=== PATIENT | female | born 1975 | race Two or more races ===

== ENCOUNTER 2017-02-15 20:19 | Emergency (ER) | payer MEDICARE, MEDICAID ==
[~2017-02-15] VITALS: Ht 152.4 cm; Wt 66.0 kg
[~2017-02-15 20:19] MED LIST: AZIT500T2 PO; CALC0.25 PO; CHOL100014 PO; DOCU-30 PO; ERTA1VIA IV; FAMO-79 PO; LEVO50TA5 PO; MULT-26 PO; MYCOPHENOLATE PEG; PRED5TAB PO; SEVE800T8 PO; TACR5CAP4 PO; ZOLP-413 PO
[2017-02-15] MEDS ORDERED: OXYcodone/APAP 5/325MG TABLET PO ONE (21:30)
[2017-02-15] MEDS ORDERED: OXYcodone/APAP 5/325MG TABLET ONE (21:30)
[2017-02-15 21:38] LABS: HEMOGLOBIN 12.2 g/dL (11.7-16.4)
[2017-02-15 21:52] LABS: ASPARTATE AMINO TRANSFERASE 37 U/L (15-37); BLOOD UREA NITROGEN 25 mg/dL (7-18)
[2017-02-15 21:54] LABS: DIFF TOTAL CELLS COUNTED 100 CELL DIFF
[2017-02-15 21:56] LABS: VERIFY COUNTS? YES
[2017-02-15 22:14] LABS: HCG UR OBC PASS
[2017-02-15] MEDS ORDERED: CEFTRIAXONE 1,000 MG IM ONE (23:00)
[2017-02-15] MEDS ORDERED: CEFTRIAXONE 1,000 MG ONE (23:02)
[2017-02-15] MEDS ORDERED: LIDOCAINE 1%, 20ML ONE (23:02)
[2017-02-15 23:36] VITALS: BP 110/72
== END 2017-02-15 23:38 | disposition home or self-care (01) ==
LOC: ED 23:03
DX: N30.91 Cystitis, unspecified with hematuria (principal); N18.6 End stage renal disease; Z99.2 Dependence on renal dialysis; Z88.0 Allergy status to penicillin; Z90.49 Acquired absence of other specified parts of digestive tract; Z86.711 Personal history of pulmonary embolism; Z94.0 Kidney transplant status
CPT/HCPCS: 36415; 80053; 81001; 81025; 83690; 85025; 87086; 96372; 99284; J0696

== ENCOUNTER 2017-03-06 21:12 | Emergency (ER) | payer MEDICARE, MEDICAID ==
[~2017-03-06] VITALS: Ht 152.4 cm; Wt 65.5 kg
[2017-03-06 22:36] LABS: PATH.CAST-FLAG NOT PRESENT; SPERM-FLAG NOT PRESENT; SRC-FLAG NOT PRESENT; XTAL-FLAG NOT PRESENT; YLC-FLAG NOT PRESENT
[2017-03-06] MEDS ORDERED: ONDANSETRON 2MG/ML, 2ML ONE (22:56)
[2017-03-06] MEDS ORDERED: MORPHINE SULFATE 4 MG/ML, 1ML ONE (22:56)
[2017-03-06] MEDS ORDERED: SODIUM CHLORIDE FLUSH 10ML SYR IVF ONE (23:00)
[2017-03-06] MEDS ORDERED: SODIUM CHLORIDE 0.9% 1,000ML IVBOLUS ONE (23:00)
[2017-03-06] MEDS ORDERED: ONDANSETRON 2MG/ML, 2ML IVPush ONE (23:00)
[2017-03-06] MEDS: MORPHINE SULFATE 4 MG/ML, 1ML IVPush PRN (23:04)
[2017-03-06 23:05] LABS: HEMOGLOBIN 12.3 g/dL (11.7-16.4)
[2017-03-06 23:15] LABS: BLOOD UREA NITROGEN 23 mg/dL (7-18)
[2017-03-06 23:20] LABS: ASPARTATE AMINO TRANSFERASE 21 U/L (15-37)
[2017-03-06 23:30] LABS: DIFF TOTAL CELLS COUNTED 100 CELL DIFF
[2017-03-06] MEDS ORDERED: CEFTRIAXONE PMX 1GM/50ML 50 ML IV ONE (23:30)
[2017-03-06 23:35] LABS: VERIFY COUNTS? YES
[2017-03-06] MEDS ORDERED: CEFTRIAXONE PMX 1GM/50ML 50 ML ONE (23:56)
[2017-03-07] MEDS: MORPHINE SULFATE 4 MG/ML, 1ML IVPush PRN (00:01)
[2017-03-07] MEDS ORDERED: MORPHINE SULFATE 4 MG/ML, 1ML ONE (00:02)
[2017-03-07 00:40] VITALS: BP 112/68
== END 2017-03-07 00:44 | disposition home or self-care (01) ==
LOC: ED 23:59
DX: N30.00 Acute cystitis without hematuria (principal); N83.202 Unspecified ovarian cyst, left side; Z90.49 Acquired absence of other specified parts of digestive tract; Z88.0 Allergy status to penicillin
CPT/HCPCS: 36415; 74176; 80053; 81001; 84703; 85025; 87086; 96361; 96365; 96375; 96376; 99285; J0696; J2405; J7030

== ENCOUNTER 2017-10-25 20:11 | Emergency (ER) | payer MEDICARE, MEDICAID ==
[~2017-10-25] VITALS: Ht 149.9 cm; Wt 69.4 kg
[~2017-10-25 20:11] MED LIST changes: +DOCU-131 PO; -DOCU-30 PO
[2017-10-25] MEDS ORDERED: SODIUM CHLORIDE 0.9% 1,000ML IVBOLUS ONE (21:00)
[2017-10-25 21:02] LABS: HEMATOCRIT 37.8 % (34.6-47.8); HEMOGLOBIN 12.4 g/dL (11.7-16.4); WHITE BLOOD COUNT 5.1 x10^3/uL (3.4-10)
[2017-10-25 21:11] LABS: ASPARTATE AMINO TRANSFERASE 12 U/L (15-37); BLOOD UREA NITROGEN 27 mg/dL (7-18)
[2017-10-25] MEDS ORDERED: HYDROmorphone 1 MG/ML, 1ML ONE (21:12)
[2017-10-25] MEDS ORDERED: ONDANSETRON 2MG/ML, 2ML ONE (21:12)
[2017-10-25 21:13] LABS: PATH.CAST-FLAG NOT PRESENT; SPERM-FLAG NOT PRESENT; SRC-FLAG NOT PRESENT; XTAL-FLAG NOT PRESENT; YLC-FLAG NOT PRESENT
[2017-10-25 21:23] LABS: DIFF TOTAL CELLS COUNTED 100 CELL DIFF
[2017-10-25 21:29] LABS: VERIFY COUNTS? YES
[2017-10-25] MEDS ORDERED: HYDROmorphone 1 MG/ML, 1ML IVPush PRN (21:30)
[2017-10-25] MEDS ORDERED: ONDANSETRON 2MG/ML, 2ML IVPush ONE (21:30)
[2017-10-25] MEDS ORDERED: MORPHINE SULFATE 4 MG/ML, 1ML IVPush PRN (21:30)
[2017-10-25] MEDS ORDERED: CEFTRIAXONE PMX 1GM/50ML 50 ML ONE (21:54)
[2017-10-25] MEDS ORDERED: CEFTRIAXONE PMX 1GM/50ML 50 ML IV ONE (22:00)
[2017-10-25 23:09] VITALS: BP 111/82
== END 2017-10-25 23:11 | disposition home or self-care (01) ==
LOC: ED 21:51
DX: N30.00 Acute cystitis without hematuria (principal); Z86.711 Personal history of pulmonary embolism; Z94.0 Kidney transplant status; Z90.49 Acquired absence of other specified parts of digestive tract; Z88.0 Allergy status to penicillin; Z88.8 Allergy status to other drugs, medicaments and biological substances
CPT/HCPCS: 36415; 80053; 81001; 83605; 83690; 84145; 85025; 87077; 87086; 87186; 96361; 96365; 96375; 99284; J0696; J1170; J2405; J7030

== ENCOUNTER 2018-01-09 06:41 | Inpatient (IN) | payer MEDICARE, MEDICAID ==
[~2018-01-09] VITALS: Ht 152.4 cm; Wt 70.1 kg
[2018-01-09] MEDS ORDERED: ONDANSETRON 2MG/ML, 2ML ONE (08:00)
[2018-01-09] MEDS ORDERED: SODIUM CHLORIDE FLUSH 10ML SYR IVF ONE (08:00)
[2018-01-09] MEDS ORDERED: MORPHINE SULFATE 4 MG/ML, 1ML ONE ×2 (08:00→09:24)
[2018-01-09] MEDS ORDERED: SODIUM CHLORIDE 0.9% 1,000ML IVBOLUS ONE (08:00)
[2018-01-09] MEDS ORDERED: ONDANSETRON 2MG/ML, 2ML IVPush ONE (08:00)
[2018-01-09] MEDS: MORPHINE SULFATE 4 MG/ML, 1ML IVPush PRN ×2 (08:14→09:25)
[2018-01-09 08:23] LABS: HCG UR SG 1.023 (1.003-1.030)
[2018-01-09 08:24] LABS: MICROSCOPIC INDICATED
[2018-01-09 08:28] LABS: BASOPHILS # (AUTO) 0.04 x10^3/uL (0-0.1); BASOPHILS % (AUTO) 1 % (0-1); EOSINOPHILS # (AUTO) 0.16 x10^3/uL (0-0.4); EOSINOPHILS % (AUTO) 2 % (1-7); LYMPHOCYTES # (AUTO) 1.06 x10^3/uL (1-3.4); LYMPHOCYTES % (AUTO) 14 % (22-44); MD NO; MEAN CORPUSCULAR HEMOGLOBIN 28.7 pg (27.0-34.8); MEAN CORPUSCULAR HGB CONC 31.9 g/dL (32.4-35.8); MEAN CORPUSCULAR VOLUME 89.8 fL (80-100); MONOCYTES # (AUTO) 0.56 x10^3/uL (0.2-0.8); MONOCYTES % (AUTO) 7 % (2-9); NEUTROPHILS # (AUTO) 5.81 x10^3/uL (1.8-6.8); NEUTROPHILS % (AUTO) 76 % (42-75); PLATELET COUNT 223 x10^3/uL (130-400); RED BLOOD COUNT 4.67 x10^6/uL (3.82-5.3); RED CELL DISTRIBUTION WIDTH 13.6 % (9.6-15.2)
[2018-01-09 08:40] LABS: ALANINE AMINOTRANSFERASE 15 U/L (12-78); ALBUMIN 3.6 g/dL (3.4-5.0); ANION GAP 8 mmol/L (5-15); CALCIUM 8.9 mg/dL (8.5-10.1); CHLORIDE 109 mmol/L (98-107); CREATININE 1.02 mg/dL (0.55-1.02)
[2018-01-09 08:41] LABS: CULTURE INDICATED? YES
[2018-01-09 08:43] LABS: ALKALINE PHOSPHATASE 70 U/L (45-117); BILIRUBIN,TOTAL 0.9 mg/dL (0.2-1.0); TOTAL PROTEIN 7.4 g/dL (6.4-8.2)
[2018-01-09] MEDS ORDERED: CEFTRIAXONE PMX 1GM/50ML 50 ML IV ONE ×2 (09:00→14:00)
[2018-01-09] MEDS ORDERED: CEFTRIAXONE PMX 1GM/50ML 50 ML ONE (09:23)
[2018-01-09] MEDS ORDERED: TACR1CAP4 PO (09:28)
[2018-01-09] MEDS ORDERED: MYCO250C4 PO (09:28)
[2018-01-09] MEDS ORDERED: hydrALAzine 20 MG/ML, 1ML IVPush PRN (11:00)
[2018-01-09] MEDS ORDERED: ONDANSETRON 2MG/ML, 2ML IVPush PRN (11:00)
[2018-01-09] MEDS ORDERED: TEMAZEPAM 15 MG CAPSULE PO PRN (11:00)
[2018-01-09 11:21] LABS: FREE T4 (FREE THYROXINE) 1.21 ng/dL (0.76-1.46); THYROID STIMULATING HORMONE 1.61 mIU/L (0.358-3.740)
[2018-01-09 12:28] VITALS: BP 101/68
[2018-01-09] MEDS ORDERED: CEFTRIAXONE 2 GM in SODIUM CHLORIDE 0.9% 50 ML IV SCH (12:30)
[2018-01-09] MEDS: LACTOBACILLUS 1GM/ PACKET PO SCH ×3 (13:17→20:07)
[2018-01-09] MEDS: TACROLIMUS 1 MG CAPSULE PO SCH ×2 (13:18→23:43)
[2018-01-09] MEDS: HEPARIN 5,000 UNITS/ML, 1ML SQ SCH ×2 (13:19→20:07)
[2018-01-09] MEDS: OMEPRAZOLE 20 MG CAPSULE.DR PO SCH (13:19)
[2018-01-09] MEDS: HYDROcodone/APAP 5/325 TABLET PO PRN (17:18)
[2018-01-09 20:24] VITALS: BP 101/66
[2018-01-10 00:13] VITALS: BP 101/63
[2018-01-10] MEDS: HEPARIN 5,000 UNITS/ML, 1ML SQ SCH ×3 (03:12→21:59)
[2018-01-10 05:23] LABS: BASOPHILS # (AUTO) 0.04 x10^3/uL (0-0.1); BASOPHILS % (AUTO) 1 % (0-1); EOSINOPHILS # (AUTO) 0.12 x10^3/uL (0-0.4); EOSINOPHILS % (AUTO) 2 % (1-7); LYMPHOCYTES # (AUTO) 1.03 x10^3/uL (1-3.4); LYMPHOCYTES % (AUTO) 12 % (22-44); MD NO; MEAN CORPUSCULAR HEMOGLOBIN 28.7 pg (27.0-34.8); MEAN CORPUSCULAR VOLUME 89.5 fL (80-100); MEAN PLATELET VOLUME 9.7 fL (7.4-10.4); MONOCYTES # (AUTO) 0.43 x10^3/uL (0.2-0.8); MONOCYTES % (AUTO) 5 % (2-9); NEUTROPHILS # (AUTO) 6.72 x10^3/uL (1.8-6.8); NEUTROPHILS % (AUTO) 81 % (42-75); PLATELET COUNT 196 x10^3/uL (130-400); RED BLOOD COUNT 4.21 x10^6/uL (3.82-5.3)
[2018-01-10 05:26] LABS: CHLORIDE 108 mmol/L (98-107)
[2018-01-10] MEDS: LEVOTHYROXINE 50 MCG TABLET PO SCH (05:29)
[2018-01-10 05:35] LABS: ALANINE AMINOTRANSFERASE 67 U/L (12-78); ALBUMIN 3.1 g/dL (3.4-5.0); ALKALINE PHOSPHATASE 81 U/L (45-117); ANION GAP 7 mmol/L (5-15); BILIRUBIN,TOTAL 0.5 mg/dL (0.2-1.0); CALCIUM 8.6 mg/dL (8.5-10.1); CREATININE 0.94 mg/dL (0.55-1.02); TOTAL PROTEIN 6.4 g/dL (6.4-8.2)
[2018-01-10 06:55] VITALS: BP 96/63
[2018-01-10] MEDS: LACTOBACILLUS 1GM/ PACKET PO SCH ×3 (08:34→21:59)
[2018-01-10] MEDS: OMEPRAZOLE 20 MG CAPSULE.DR PO SCH (08:34)
[2018-01-10] MEDS: HYDROcodone/APAP 5/325 TABLET PO PRN (08:44)
[2018-01-10] MEDS: CEFTRIAXONE PMX 2GM/50ML 50 ML IV SCH (12:50)
[2018-01-10] MEDS: TACROLIMUS 1 MG CAPSULE PO SCH ×2 (12:50→21:59)
[2018-01-10 14:25] VITALS: BP 99/62
[2018-01-10 14:26] VITALS: BP_SYST 105; BP_SYST 108; BP_DIAS 66; BP_DIAS 71
[2018-01-10 20:49] VITALS: BP 117/76
[2018-01-11 03:56] VITALS: BP 102/65
[2018-01-11] MEDS: LEVOTHYROXINE 50 MCG TABLET PO SCH (05:18)
[2018-01-11] MEDS: HEPARIN 5,000 UNITS/ML, 1ML SQ SCH ×3 (05:18→20:24)
[2018-01-11 05:21] LABS: BASOPHILS # (AUTO) 0.03 x10^3/uL (0-0.1); BASOPHILS % (AUTO) 0 % (0-1); EOSINOPHILS # (AUTO) 0.16 x10^3/uL (0-0.4); EOSINOPHILS % (AUTO) 2 % (1-7); LYMPHOCYTES # (AUTO) 1.48 x10^3/uL (1-3.4); LYMPHOCYTES % (AUTO) 18 % (22-44); MD NO; MEAN CORPUSCULAR HEMOGLOBIN 28.7 pg (27.0-34.8); MEAN CORPUSCULAR HGB CONC 32.1 g/dL (32.4-35.8); MEAN CORPUSCULAR VOLUME 89.5 fL (80-100); MEAN PLATELET VOLUME 9.4 fL (7.4-10.4); MONOCYTES # (AUTO) 0.66 x10^3/uL (0.2-0.8); MONOCYTES % (AUTO) 8 % (2-9); NEUTROPHILS % (AUTO) 72 % (42-75); PLATELET COUNT 211 x10^3/uL (130-400); RED BLOOD COUNT 4.31 x10^6/uL (3.82-5.3); RED CELL DISTRIBUTION WIDTH 14.2 % (9.6-15.2)
[2018-01-11 05:26] LABS: CHLORIDE 107 mmol/L (98-107)
[2018-01-11 05:30] LABS: ANION GAP 8 mmol/L (5-15); CALCIUM 8.5 mg/dL (8.5-10.1); CREATININE 1.06 mg/dL (0.55-1.02)
[2018-01-11 06:50] VITALS: BP 99/62
[2018-01-11] MEDS: OMEPRAZOLE 20 MG CAPSULE.DR PO SCH (08:48)
[2018-01-11] MEDS: LACTOBACILLUS 1GM/ PACKET PO SCH ×3 (08:48→20:25)
[2018-01-11] MEDS: TACROLIMUS 1 MG CAPSULE PO SCH ×2 (08:49→20:25)
[2018-01-11] MEDS: HYDROcodone/APAP 5/325 TABLET PO PRN ×2 (08:54→20:24)
[2018-01-11] MEDS: CEFTRIAXONE PMX 2GM/50ML 50 ML IV SCH (12:47)
[2018-01-11 13:09] VITALS: BP 111/70
[2018-01-11 19:57] VITALS: BP 106/70
[2018-01-12 02:37] VITALS: BP 96/58
[2018-01-12 05:30] LABS: BASOPHILS # (AUTO) 0.03 x10^3/uL (0-0.1); BASOPHILS % (AUTO) 0 % (0-1); EOSINOPHILS # (AUTO) 0.19 x10^3/uL (0-0.4); EOSINOPHILS % (AUTO) 2 % (1-7); LYMPHOCYTES # (AUTO) 1.54 x10^3/uL (1-3.4); LYMPHOCYTES % (AUTO) 18 % (22-44); MD NO; MEAN CORPUSCULAR HEMOGLOBIN 28.4 pg (27.0-34.8); MEAN CORPUSCULAR HGB CONC 31.8 g/dL (32.4-35.8); MEAN CORPUSCULAR VOLUME 89.4 fL (80-100); MEAN PLATELET VOLUME 9.9 fL (7.4-10.4); MONOCYTES # (AUTO) 0.69 x10^3/uL (0.2-0.8); MONOCYTES % (AUTO) 8 % (2-9); NEUTROPHILS # (AUTO) 6.04 x10^3/uL (1.8-6.8); NEUTROPHILS % (AUTO) 71 % (42-75); PLATELET COUNT 216 x10^3/uL (130-400); RED CELL DISTRIBUTION WIDTH 14.1 % (9.6-15.2)
[2018-01-12] MEDS: LEVOTHYROXINE 50 MCG TABLET PO SCH (05:41)
[2018-01-12] MEDS: HEPARIN 5,000 UNITS/ML, 1ML SQ SCH ×3 (05:42→20:29)
[2018-01-12 05:57] LABS: CHLORIDE 105 mmol/L (98-107)
[2018-01-12 06:22] LABS: ALANINE AMINOTRANSFERASE 51 U/L (12-78); ALBUMIN 3.3 g/dL (3.4-5.0); ALKALINE PHOSPHATASE 72 U/L (45-117); ANION GAP 11 mmol/L (5-15); BILIRUBIN,TOTAL 0.4 mg/dL (0.2-1.0); CALCIUM 8.7 mg/dL (8.5-10.1); CREATININE 1.14 mg/dL (0.55-1.02); TOTAL PROTEIN 6.6 g/dL (6.4-8.2)
[2018-01-12 07:06] VITALS: BP 109/71
[2018-01-12] MEDS: OMEPRAZOLE 20 MG CAPSULE.DR PO SCH (08:15)
[2018-01-12] MEDS: LACTOBACILLUS 1GM/ PACKET PO SCH ×3 (08:15→20:28)
[2018-01-12] MEDS: TACROLIMUS 1 MG CAPSULE PO SCH ×2 (10:02→20:29)
[2018-01-12] MEDS: CEFTRIAXONE PMX 2GM/50ML 50 ML IV SCH (12:30)
[2018-01-12 13:36] VITALS: BP 106/70
[2018-01-12 20:00] VITALS: BP 108/69
[2018-01-13 02:00] VITALS: BP 101/67
[2018-01-13] MEDS: HEPARIN 5,000 UNITS/ML, 1ML SQ SCH ×3 (05:00→20:38)
[2018-01-13 05:18] LABS: BASOPHILS # (AUTO) 0.04 x10^3/uL (0-0.1); BASOPHILS % (AUTO) 0 % (0-1); EOSINOPHILS % (AUTO) 2 % (1-7); LYMPHOCYTES # (AUTO) 1.51 x10^3/uL (1-3.4); LYMPHOCYTES % (AUTO) 17 % (22-44); MD NO; MEAN CORPUSCULAR HEMOGLOBIN 28.8 pg (27.0-34.8); MEAN CORPUSCULAR HGB CONC 31.8 g/dL (32.4-35.8); MEAN CORPUSCULAR VOLUME 90.6 fL (80-100); MEAN PLATELET VOLUME 9.3 fL (7.4-10.4); MONOCYTES # (AUTO) 0.58 x10^3/uL (0.2-0.8); MONOCYTES % (AUTO) 7 % (2-9); NEUTROPHILS # (AUTO) 6.54 x10^3/uL (1.8-6.8); NEUTROPHILS % (AUTO) 74 % (42-75); PLATELET COUNT 222 x10^3/uL (130-400); RED BLOOD COUNT 4.52 x10^6/uL (3.82-5.3); RED CELL DISTRIBUTION WIDTH 13.9 % (9.6-15.2)
[2018-01-13 05:35] LABS: CHLORIDE 105 mmol/L (98-107)
[2018-01-13 05:44] LABS: ANION GAP 9 mmol/L (5-15); CALCIUM 8.8 mg/dL (8.5-10.1); CREATININE 1.19 mg/dL (0.55-1.02)
[2018-01-13] MEDS: LEVOTHYROXINE 50 MCG TABLET PO SCH (06:12)
[2018-01-13 07:00] VITALS: BP 101/68
[2018-01-13] MEDS: OMEPRAZOLE 20 MG CAPSULE.DR PO SCH (07:54)
[2018-01-13] MEDS: TACROLIMUS 1 MG CAPSULE PO SCH ×2 (07:54→20:38)
[2018-01-13] MEDS: LACTOBACILLUS 1GM/ PACKET PO SCH ×3 (07:54→20:37)
[2018-01-13] MEDS ORDERED: SODIUM CHLORIDE 0.9%, 500ML IVBOLUS ONE (11:30)
[2018-01-13 12:20] VITALS: BP 93/60
[2018-01-13] MEDS: CEFTRIAXONE PMX 2GM/50ML 50 ML IV SCH (12:28)
[2018-01-13 16:24] LABS: ANION GAP 8 mmol/L (5-15); CALCIUM 8.5 mg/dL (8.5-10.1); CHLORIDE 107 mmol/L (98-107); CREATININE 1.13 mg/dL (0.55-1.02)
[2018-01-13] MEDS: SODIUM CHLORIDE 0.9% 1,000 ML IV SCH (16:53)
[2018-01-13 19:25] VITALS: BP 137/76
[2018-01-14] MEDS: SODIUM CHLORIDE 0.9% 1,000 ML IV SCH (02:34)
[2018-01-14 03:59] VITALS: BP 102/68
[2018-01-14] MEDS: HEPARIN 5,000 UNITS/ML, 1ML SQ SCH (05:00)
[2018-01-14] MEDS: LEVOTHYROXINE 50 MCG TABLET PO SCH (06:01)
[2018-01-14 06:35] LABS: ANION GAP 7 mmol/L (5-15); CHLORIDE 110 mmol/L (98-107)
[2018-01-14 06:36] LABS: CREATININE 1.05 mg/dL (0.55-1.02)
[2018-01-14 07:15] VITALS: BP 97/66
[2018-01-14] MEDS: OMEPRAZOLE 20 MG CAPSULE.DR PO SCH (08:30)
[2018-01-14] MEDS: LACTOBACILLUS 1GM/ PACKET PO SCH (08:31)
[2018-01-14] MEDS: TACROLIMUS 1 MG CAPSULE PO SCH (08:31)
[2018-01-14] MEDS ORDERED: CEFD300C37 PO (09:31)
[2018-01-14] MEDS ORDERED: ACID1GRA3 PO (09:31)
[2018-01-14] MEDS ORDERED: PNEUMOCOCCAL 23 VACCINE IM-VACC ONE (13:00)
== END 2018-01-14 14:35 | disposition home or self-care (01) | DRG 690 ==
LOC: ED 07:35 → EDIP 09:38 → 4EST 12:04 → DCLOUNGE 01-14 14:31
PROVIDERS: ADMIT Internal Medicine Pulmonary Disease; ATTEND Internal Medicine
DX: N10 Acute pyelonephritis (principal); D89.9 Disorder involving the immune mechanism, unspecified; N18.3 Chronic kidney disease, stage 3 (moderate); Z94.0 Kidney transplant status; N02.8 Recurrent and persistent hematuria with other morphologic changes; N25.0 Renal osteodystrophy; E03.9 Hypothyroidism, unspecified; K21.9 Gastro-esophageal reflux disease without esophagitis; M10.9 Gout, unspecified; N83.209 Unspecified ovarian cyst, unspecified side; D63.8 Anemia in other chronic diseases classified elsewhere; B96.89 Other specified bacterial agents as the cause of diseases classified elsewhere; G25.81 Restless legs syndrome; Z82.49 Family history of ischemic heart disease and other diseases of the circulatory system; Z86.711 Personal history of pulmonary embolism; Z86.72 Personal history of thrombophlebitis; Z90.49 Acquired absence of other specified parts of digestive tract; Z99.2 Dependence on renal dialysis; Z23 Encounter for immunization; Z88.0 Allergy status to penicillin
CPT/HCPCS: 36415; 74176; 80048; 80053; 80197; 81001; 81025; 83690; 83735; 84100; 84439; 84443; 85025; 87040; 87077; 87086; 87186; 90732; 96361; 96365; 96375; 96376; J0696; J1644; J2405; J7507; J7030; J7040; J7512; J7517

== ENCOUNTER 2018-04-06 20:36 | Emergency (ER) | payer MEDICARE, MEDICAID ==
[~2018-04-06] VITALS: Ht 152.4 cm; Wt 68.9 kg
[~2018-04-06 20:36] MED LIST changes: +ACID1GRA3 PO; +CEFD300C37 PO; +MYCO250C4 PO; +TACR1CAP4 PO
[2018-04-06 21:45] LABS: BASOPHILS # (AUTO) 0.08 x10^3/uL (0-0.1); BASOPHILS % (AUTO) 1 % (0-1); EOSINOPHILS # (AUTO) 0.07 x10^3/uL (0-0.4); EOSINOPHILS % (AUTO) 1 % (1-7); LYMPHOCYTES # (AUTO) 1.09 x10^3/uL (1-3.4); LYMPHOCYTES % (AUTO) 11 % (22-44); MD NO; MEAN CORPUSCULAR HEMOGLOBIN 28.9 pg (27.0-34.8); MEAN CORPUSCULAR HGB CONC 32.3 g/dL (32.4-35.8); MEAN CORPUSCULAR VOLUME 89.7 fL (80-100); MONOCYTES # (AUTO) 0.78 x10^3/uL (0.2-0.8); MONOCYTES % (AUTO) 8 % (2-9); NEUTROPHILS # (AUTO) 8.26 x10^3/uL (1.8-6.8); NEUTROPHILS % (AUTO) 80 % (42-75); PLATELET COUNT 232 x10^3/uL (130-400); RED BLOOD COUNT 4.37 x10^6/uL (3.82-5.3); RED CELL DISTRIBUTION WIDTH 14.1 % (9.6-15.2)
[2018-04-06 21:53] LABS: ALBUMIN 3.5 g/dL (3.4-5.0); ANION GAP 7 mmol/L (5-15); CALCIUM 8.9 mg/dL (8.5-10.1); CHLORIDE 110 mmol/L (98-107); CREATININE 1.15 mg/dL (0.55-1.02)
[2018-04-06 22:53] LABS: HCT (SEDRATE) 39.2 % (34.6-47.8)
[2018-04-06] MEDS ORDERED: OXYcodone/APAP 5/325MG TABLET ONE (23:00)
[2018-04-06] MEDS ORDERED: OXYcodone/APAP 10/325MG TABLET PO ONE (23:00)
[2018-04-06] MEDS: COLCHICINE 0.6 MG TABLET PO ONE ×2 (23:00→23:05)
[2018-04-06] MEDS ORDERED: COLCHICINE 0.6 MG TABLET ONE ×2 (23:01→23:06)
[2018-04-06] MEDS ORDERED: OXYcodone/APAP 10/325MG TABLET ONE (23:02)
[2018-04-06 23:54] VITALS: BP 145/82
[2018-04-07] MEDS ORDERED: COLCHICINE 0.6 MG TABLET PO ONE
== END 2018-04-07 | disposition home or self-care (01) ==
LOC: ED 23:55
DX: M13.172 Monoarthritis, not elsewhere classified, left ankle and foot (principal); Z90.49 Acquired absence of other specified parts of digestive tract; Z88.0 Allergy status to penicillin
CPT/HCPCS: 36415; 80048; 82040; 84550; 85025; 85651; 86140; 99285

== ENCOUNTER 2018-06-14 22:21 | Emergency (ER) | payer MEDICARE, MEDICAID ==
[~2018-06-14] VITALS: Ht 154.9 cm; Wt 69.9 kg
[2018-06-14 22:55] LABS: BASOPHILS # (AUTO) 0.07 x10^3/uL (0-0.1); BASOPHILS % (AUTO) 1 % (0-1); EOSINOPHILS # (AUTO) 0.27 x10^3/uL (0-0.4); EOSINOPHILS % (AUTO) 4 % (1-7); LYMPHOCYTES # (AUTO) 1.97 x10^3/uL (1-3.4); LYMPHOCYTES % (AUTO) 28 % (22-44); MD NO; MEAN CORPUSCULAR HEMOGLOBIN 28.2 pg (27.0-34.8); MEAN CORPUSCULAR HGB CONC 32.2 g/dL (32.4-35.8); MEAN CORPUSCULAR VOLUME 87.7 fL (80-100); MONOCYTES # (AUTO) 0.52 x10^3/uL (0.2-0.8); MONOCYTES % (AUTO) 8 % (2-9); NEUTROPHILS # (AUTO) 4.15 x10^3/uL (1.8-6.8); NEUTROPHILS % (AUTO) 59 % (42-75); PLATELET COUNT 261 x10^3/uL (130-400); RED BLOOD COUNT 4.48 x10^6/uL (3.82-5.3); RED CELL DISTRIBUTION WIDTH 14.5 % (9.6-15.2)
[2018-06-14 23:07] LABS: ALBUMIN 3.7 g/dL (3.4-5.0); ANION GAP 6 mmol/L (5-15); CALCIUM 8.6 mg/dL (8.5-10.1); CHLORIDE 109 mmol/L (98-107); CREATININE 1.35 mg/dL (0.55-1.02)
[2018-06-14 23:12] LABS: TROPONIN I < 0.015 ng/mL (0.000-0.045)
[2018-06-14 23:56] VITALS: BP 114/68
== END 2018-06-15 00:37 | disposition home or self-care (01) ==
LOC: ED 22:50
DX: M79.622 Pain in left upper arm (principal); R20.2 Paresthesia of skin; M79.89 Other specified soft tissue disorders; I12.0 Hypertensive chronic kidney disease with stage 5 chronic kidney disease or end stage renal disease; N18.6 End stage renal disease; N17.9 Acute kidney failure, unspecified; Z99.2 Dependence on renal dialysis
CPT/HCPCS: 36415; 80048; 82040; 84484; 85025; 93005; 99285

== ENCOUNTER 2018-08-29 06:33 | Emergency (ER) | payer MEDICARE, MEDICAID ==
[~2018-08-29] VITALS: Ht 152.4 cm; Wt 71.0 kg
[2018-08-29] MEDS ORDERED: METOCLOPRAMIDE 5 MG/ML, 2ML ONE (07:22)
[2018-08-29] MEDS ORDERED: MORPHINE SULFATE 4 MG/ML, 1ML ONE (07:23)
[2018-08-29] MEDS ORDERED: SODIUM CHLORIDE FLUSH 10ML SYR IVF ONE (07:30)
[2018-08-29] MEDS ORDERED: MORPHINE SULFATE 4 MG/ML, 1ML IVPush PRN (07:30)
[2018-08-29] MEDS ORDERED: SODIUM CHLORIDE 0.9% 1,000ML IVBOLUS ONE (07:30)
[2018-08-29] MEDS ORDERED: METOCLOPRAMIDE 5 MG/ML, 2ML IVPush ONE (07:30)
[2018-08-29] MEDS ORDERED: ALLO100T30 PO (07:34)
[2018-08-29 07:35] LABS: BASOPHILS # (AUTO) 0.04 x10^3/uL (0-0.1); BASOPHILS % (AUTO) 1 % (0-1); EOSINOPHILS # (AUTO) 0.18 x10^3/uL (0-0.4); EOSINOPHILS % (AUTO) 3 % (1-7); LYMPHOCYTES # (AUTO) 1.14 x10^3/uL (1-3.4); LYMPHOCYTES % (AUTO) 16 % (22-44); MD NO; MEAN CORPUSCULAR HEMOGLOBIN 28.5 pg (27.0-34.8); MEAN CORPUSCULAR HGB CONC 32.6 g/dL (32.4-35.8); MEAN CORPUSCULAR VOLUME 87.4 fL (80-100); MEAN PLATELET VOLUME 9.1 fL (7.4-10.4); MONOCYTES % (AUTO) 8 % (2-9); NEUTROPHILS # (AUTO) 5.25 x10^3/uL (1.8-6.8); NEUTROPHILS % (AUTO) 73 % (42-75); PLATELET COUNT 244 x10^3/uL (130-400); RED BLOOD COUNT 4.93 x10^6/uL (3.82-5.3); RED CELL DISTRIBUTION WIDTH 14.7 % (9.6-15.2)
[2018-08-29 07:46] LABS: ALBUMIN 3.5 g/dL (3.4-5.0); ANION GAP 9 mmol/L (5-15); CALCIUM 8.8 mg/dL (8.5-10.1); CHLORIDE 110 mmol/L (98-107); CREATININE 1.13 mg/dL (0.55-1.02)
[2018-08-29 08:59] VITALS: BP 113/73
== END 2018-08-29 09:18 | disposition home or self-care (01) ==
LOC: ED 09:15
DX: G44.219 Episodic tension-type headache, not intractable (principal); J01.00 Acute maxillary sinusitis, unspecified; Z94.0 Kidney transplant status; I10 Essential (primary) hypertension
CPT/HCPCS: 36415; 70450; 80048; 82040; 85025; 96374; 96375; 99285; J2765; J7030

== ENCOUNTER 2018-11-21 02:38 | Emergency (ER) | payer MEDICARE, MEDICAID ==
[~2018-11-21] VITALS: Ht 149.9 cm; Wt 69.0 kg
[~2018-11-21 02:38] MED LIST changes: +ALLO100T30 PO
[2018-11-21] MEDS ORDERED: ONDANSETRON 2MG/ML, 2ML IVPush ONE ×2 (03:00→05:00)
[2018-11-21] MEDS ORDERED: ONDANSETRON 2MG/ML, 2ML ONE ×2 (03:09→04:46)
[2018-11-21] MEDS ORDERED: MORPHINE SULFATE 4 MG/ML, 1ML ONE ×2 (03:09→04:51)
[2018-11-21 03:13] LABS: BASOPHILS # (AUTO) 0.01 x10^3/uL (0-0.1); BASOPHILS % (AUTO) 0 % (0-1); EOSINOPHILS # (AUTO) 0.15 x10^3/uL (0-0.4); EOSINOPHILS % (AUTO) 1 % (1-7); LYMPHOCYTES # (AUTO) 0.65 x10^3/uL (1-3.4); LYMPHOCYTES % (AUTO) 4 % (22-44); MD NO; MEAN CORPUSCULAR HEMOGLOBIN 28.9 pg (27.0-34.8); MEAN CORPUSCULAR HGB CONC 32.7 g/dL (32.4-35.8); MEAN CORPUSCULAR VOLUME 88.5 fL (80-100); MEAN PLATELET VOLUME 9.4 fL (7.4-10.4); MONOCYTES % (AUTO) 3 % (2-9); NEUTROPHILS # (AUTO) 14.39 x10^3/uL (1.8-6.8); NEUTROPHILS % (AUTO) 92 % (42-75); PLATELET COUNT 226 x10^3/uL (130-400); RED BLOOD COUNT 5.35 x10^6/uL (3.82-5.3); RED CELL DISTRIBUTION WIDTH 14.6 % (9.6-15.2)
[2018-11-21] MEDS: MORPHINE SULFATE 4 MG/ML, 1ML IVPush PRN ×2 (03:15→04:54)
[2018-11-21 03:21] LABS: ALANINE AMINOTRANSFERASE 21 U/L (12-78); ANION GAP 12 mmol/L (5-15); CHLORIDE 109 mmol/L (98-107)
[2018-11-21 03:24] LABS: ALKALINE PHOSPHATASE 87 U/L (45-117); BILIRUBIN,TOTAL 0.6 mg/dL (0.2-1.0); CREATININE 1.29 mg/dL (0.55-1.02); TOTAL PROTEIN 8.2 g/dL (6.4-8.2)
[2018-11-21 04:57] VITALS: BP 116/74
== END 2018-11-21 05:21 | disposition home or self-care (01) ==
LOC: ED 03:48
DX: A09 Infectious gastroenteritis and colitis, unspecified (principal); I10 Essential (primary) hypertension
CPT/HCPCS: 36415; 74176; 80053; 83690; 85025; 96374; 96375; 96376; 99284; J2405

== ENCOUNTER 2019-03-16 03:23 | Emergency (ER) | payer MEDICARE, MEDICAID ==
[~2019-03-16] VITALS: Ht 152.4 cm; Wt 72.3 kg
--- NOTE | 2019-03-16 03:36 | NUR ---
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
--- NOTE | 2019-03-16 03:44 | NUR ---
PT PRESENTS TO ED C/O R FLANK PAINx3 DAYS THAT IS RADIATING TO MID BACK AND "A LITTLE BIT ON THE LEFT"x1 DAY. STATES PAIN GETTING WORSE AND "FEELS LIKE STABBING." +N. DENIES FURTHER GI/ S/S. PT ATTEMPTING UA AT THIS TIME. AT BEDSIDE FOR ASSESSMENT.
[2019-03-16 04:00] LABS: MICROSCOPIC AUTO
[2019-03-16 04:05] LABS: CULTURE INDICATED? YES
[2019-03-16 04:06] LABS: BASOPHILS # (AUTO) 0.04 x10^3/uL (0-0.1); BASOPHILS % (AUTO) 1 % (0-1); EOSINOPHILS # (AUTO) 0.31 x10^3/uL (0-0.4); EOSINOPHILS % (AUTO) 4 % (1-7); LYMPHOCYTES # (AUTO) 1.89 x10^3/uL (1-3.4); LYMPHOCYTES % (AUTO) 23 % (22-44); MD NO; MEAN CORPUSCULAR HEMOGLOBIN 28.2 pg (27.0-34.8); MEAN CORPUSCULAR HGB CONC 31.2 g/dL (32.4-35.8); MEAN CORPUSCULAR VOLUME 90.2 fL (80-100); MONOCYTES # (AUTO) 0.56 x10^3/uL (0.2-0.8); MONOCYTES % (AUTO) 7 % (2-9); NEUTROPHILS # (AUTO) 5.36 x10^3/uL (1.8-6.8); NEUTROPHILS % (AUTO) 66 % (42-75); PLATELET COUNT 238 x10^3/uL (130-400); RED BLOOD COUNT 4.33 x10^6/uL (3.82-5.3)
[2019-03-16 04:13] LABS: ALBUMIN 3.5 g/dL (3.4-5.0); ANION GAP 6 mmol/L (5-15); CALCIUM 8.4 mg/dL (8.5-10.1); CHLORIDE 113 mmol/L (98-107); CREATININE 1.32 mg/dL (0.55-1.02)
[2019-03-16] MEDS ORDERED: HYDROcodone/APAP 5/325 TABLET PO ONE (04:30)
[2019-03-16] MEDS ORDERED: ONDANSETRON ODT 4 MG PO ONE (04:30)
[2019-03-16] MEDS ORDERED: CEFDINIR 300 MG CAPSULE PO SCH (04:30)
[2019-03-16] MEDS ORDERED: ONDANSETRON ODT 4 MG ONE (04:36)
[2019-03-16] MEDS ORDERED: CEFDINIR 300 MG CAPSULE ONE (04:38)
[2019-03-16] MEDS ORDERED: HYDROcodone/APAP 5/325 TABLET ONE (04:38)
[2019-03-16 04:42] VITALS: BP 112/68
== END 2019-03-16 05:08 | disposition home or self-care (01) ==
LOC: ED 05:02
DX: N10 Acute pyelonephritis (principal); I10 Essential (primary) hypertension; Z90.49 Acquired absence of other specified parts of digestive tract
CPT/HCPCS: 36415; 71045; 76770; 80048; 81001; 82040; 84703; 85025; 87077; 87086; 99284; Q0162; 87186